=== PATIENT | male | born 1960 | race Caucasian/White ===

== ENCOUNTER 2017-07-05 00:49 | Emergency (ER) | payer OTHER ==
[2017-07-05 02:00] LABS: #Eosinphils 0.1 thou/uL (0.0-0.7); #Lymphocytes 2.4 thou/uL (1.20-3.40); #Monocytes 0.5 thou/uL (0.11-0.59); #Neutrophils 9.4 thou/uL (1.40-6.50); %Basophils 0.4 % (0.0-1.0); %Eosinophils 0.5 % (0.0-10.0); %Lymphocytes 19.5 % (21.0-51.0); %Monocytes 4.3 % (0.0-10.0); Hematocrit 40.5 % (42.0-52.0); Mean Platelet Volume 8.8 fL (7.4-10.4); Red Blood Cell (RBC) Count 4.34 mill/uL (4.70-6.10); White Blood Cell (WBC) Count 12.5 thou/uL (4.8-10.8)
[2017-07-05 02:22] LABS: Anion Gap 10 mmol/L (10-20); BUN (Urea Nitrogen) 29 mg/dL (8.4-25.7); Calc. Creatinine Clearance 0 mL/min (70-130); Carbon Dioxide 26 mmol/L (22-29); Chloride 106 mmol/L (98-107); Estimated GFR-MDRD 54
[2017-07-05 02:27] LABS: Troponin I Less than 0.010 ng/mL (< 0.028)
[2017-07-05 02:29] LABS: Bilirubin Negative (Negative); Blood, Urine Negative (Negative); Glucose, Urine (Dipstick) Negative (Negative); Ketone, Urine Negative (Negative); Nitrite Negative (Negative); Protein, Urine (Dipstick) Negative (Neg-Trace); Urobilinogen 0.2 mg/dL (0.2-1.0)
[2017-07-05 02:30] LABS: Amphetamine Not Detected (NotDetected); Methadone Not Detected (NotDetected); Methamphetamine Not Detected (NotDetected)
[2017-07-05] MEDS ORDERED: Famotidine/PF 20 mg/2ml Vial ONE (04:03)
[2017-07-05] MEDS ORDERED: diphenhydrAMINE 50 MG/ML VIAL ONE (04:03)
[2017-07-05] MEDS ORDERED: methylPREDNISolone Sod Succ/PF 125 MG/2 ML VIAL ONE (04:03)
--- NOTE | 2017-07-05 09:02 | CT ---
PRELIMINARY REPORT/[facility]/EMERGENCY AFTER HOURS PROCEDURE: EXAM: CT Head Without Intravenous Contrast CLINICAL HISTORY: 56 years old, male; Injury or trauma; Fall; Initial encounter; Blunt trauma (contusions or hematomas ); With loss of consciousness; Loss of consciousness for 30 minutes or less; Patient HX: Syncopal ep isode, fall TECHNIQUE: Axial computed tomography images of the head/brain without intravenous contrast. COMPARISON: No relevant prior studies available. FINDINGS: Brain: Unremarkable. No hemorrhage. No significant white matter disease. No edema. Ventricles: Unremarkable. No ventriculomegaly. Bones/joints: Unremarkable. No acute fracture. Soft tissues: Unremarkable. Sinuses: Unremarkable as visualized. No acute sinusitis. Mastoid air cells: Unremarkable as visualized. No mastoid effusion. IMPRESSION: No acute intracranial pathology. Thank you for allowing us to participate in the care of your patient. Dictated and Authenticated by: Evan Herbert MD 07/05/2017 2:20 AM Central Time ([place] \T\ [place]) FINAL REPORT CT BRAIN WITHOUT CONTRAST: Date: 07/05/17 FINDINGS/IMPRESSION: I agree with the preliminary report given by Dr. Evan Herbert of [facility]. POS: [facility]
== END 2017-07-05 05:48 | disposition home or self-care (01) ==
LOC: ERS 00:49
DX: R55 Syncope and collapse (principal); L25.9 Unspecified contact dermatitis, unspecified cause; I10 Essential (primary) hypertension; F41.9 Anxiety disorder, unspecified; Z87.891 Personal history of nicotine dependence; Z79.899 Other long term (current) drug therapy
CPT/HCPCS: 36415; 70450; 80048; 80306; 80307; 81003; 82553; 84484; 85025; 93005; 96361; 96374; 96375; J1200; J2930; S0028

== ENCOUNTER 2021-03-25 09:17 | Observation (INO) | payer OTHER ==
[2021-03-25 10:32] LABS: #Basophils 0.1 thou/uL (0.0-0.2); #Eosinphils 0.1 thou/uL (0.0-0.7); #Lymphocytes 1.9 thou/uL (1.20-3.40); #Monocytes 0.4 thou/uL (0.11-0.59); #Neutrophils 2.9 thou/uL (1.40-6.50); %Basophils 1.2 % (0.0-1.0); %Eosinophils 1.1 % (0.0-10.0); %Lymphocytes 36.3 % (21.0-51.0); %Monocytes 6.9 % (0.0-10.0); %Neutrophils 54.5 % (42.0-75.0); Hemoglobin 13.8 g/dL (14.0-18.0); Mean Corpuscular HGB CONC 33.3 g/dL (32.0-36.0); Mean Corpuscular Volume 92.9 fL (78.0-98.0); Mean Platelet Volume 9.1 fL (7.4-10.4); Platelet Count 213 thou/uL (130-400); RBC Distribution Width 11.8 % (11.5-14.5); Red Blood Cell (RBC) Count 4.44 mill/uL (4.70-6.10); White Blood Cell (WBC) Count 5.3 thou/uL (4.8-10.8)
[2021-03-25 10:55] LABS: ALT (SGPT) 10 U/L (8-55); AST (SGOT) 14 U/L (5-34); Albumin 4.3 g/dL (3.4-4.8); Alkaline Phosphatase 61 U/L (40-110); Anion Gap 10 mmol/L (10-20); BUN (Urea Nitrogen) 11 mg/dL (8.4-25.7); Bilirubin, Total 0.7 mg/dL (0.2-1.2); Calc. Creatinine Clearance 0 mL/min (70-130); Calcium 9.6 mg/dL (7.8-10.44); Carbon Dioxide 29 mmol/L (23-31); Chloride 105 mmol/L (98-107); Globulin 2.7 g/dL (2.4-3.5); Glucose 99 mg/dL (80-115); Lipase 30 U/L (8-78); Potassium 4.7 mmol/L (3.5-5.1); Sodium 139 mmol/L (136-145)
[2021-03-25] MEDS ORDERED: Aspirin Chewable 81 MG TAB ONE (10:58)
[2021-03-25] MEDS ORDERED: Nitroglycerin 2% Ointment 1 INCH/1 GM Packet ONE (10:58)
[2021-03-25] MEDS ORDERED: Enoxaparin Sodium 40 MG/0.4 ML SYRINGE SC SCH (12:15)
[2021-03-25] MEDS ORDERED: Lorazepam 0.5 MG TAB PO PRN (12:43)
[2021-03-25 12:54] LABS: Reticulocyte Count 0.8 % (0.5-1.5)
[2021-03-25 12:55] LABS: Iron 89 ug/dL (65-175); Iron Binding Capacity, Total 268 mcg/dL (261-462)
[2021-03-25 13:12] LABS: Ferritin 194.98 ng/mL (22-322)
[2021-03-25 13:26] LABS: HBCM Index 0.04 S/CO (0-0.79); HBSAg Index 0.22 S/CO (0-0.99); Hep A IgM AB Non-Reactive (NonReactive); Hep A IgM S/CO 0.07 S/CO (0-0.79); Hep B Surf Ag Non-Reactive S/CO (NonReactive); Hep C IgG Ab Non-Reactive (NonReactive); Hep C Index 0.05 S/CO (0-0.79); Hepatitis B Core IgM Abs Non-Reactive (NonReactive)
[2021-03-25 13:33] LABS: Troponin I Less than 0.010 ng/mL (< 0.028)
[2021-03-25 15:39] LABS: SARS-CoV-2 NAA Rapid Test Not Detected (NotDetected)
[2021-03-25 17:11] LABS: Troponin I Less than 0.010 ng/mL (< 0.028)
[2021-03-25] MEDS ORDERED: Rosuvastatin 10 MG TAB PO SCH (21:00)
[2021-03-25 21:32] VITALS: BMI 19.0
[2021-03-25] MEDS: Nitroglycerin 2% Ointment 1 INCH/1 GM Packet TOP SCH ×2 (21:36→22:17)
[2021-03-25] MEDS: Carvedilol 3.125 MG TAB PO SCH (21:46)
[2021-03-25] MEDS: Famotidine 20 MG TAB PO SCH (21:46)
[2021-03-25] MEDS: Sodium Chloride 0.9% 1,000 ML IV SCH ×2 (21:47)
[2021-03-26 05:29] LABS: #Basophils 0.1 thou/uL (0.0-0.2); #Eosinphils 0.1 thou/uL (0.0-0.7); #Lymphocytes 2.3 thou/uL (1.20-3.40); #Monocytes 0.5 thou/uL (0.11-0.59); %Eosinophils 1.5 % (0.0-10.0); %Lymphocytes 32.7 % (21.0-51.0); %Monocytes 6.8 % (0.0-10.0); Hemoglobin 11.9 g/dL (14.0-18.0); Mean Corpuscular HGB CONC 32.8 g/dL (32.0-36.0); Mean Corpuscular Hemoglobin 30.5 pg (27.0-31.0); Mean Corpuscular Volume 93.1 fL (78.0-98.0); Mean Platelet Volume 9.2 fL (7.4-10.4); Platelet Count 188 thou/uL (130-400); RBC Distribution Width 11.8 % (11.5-14.5); White Blood Cell (WBC) Count 6.9 thou/uL (4.8-10.8)
[2021-03-26] MEDS: Sodium Chloride 0.9% 1,000 ML IV SCH ×2 (05:57→15:42)
[2021-03-26] MEDS: Nitroglycerin 2% Ointment 1 INCH/1 GM Packet TOP SCH ×2 (05:57→14:56)
[2021-03-26 06:11] LABS: Anion Gap 9 mmol/L (10-20); BUN (Urea Nitrogen) 14 mg/dL (8.4-25.7); Calc. Creatinine Clearance 69 mL/min (70-130); Calcium 8.6 mg/dL (7.8-10.44); Carbon Dioxide 26 mmol/L (23-31); Chloride 110 mmol/L (98-107); Glucose 89 mg/dL (80-115); Potassium 4.9 mmol/L (3.5-5.1); Sodium 140 mmol/L (136-145)
[2021-03-26] MEDS ORDERED: [UNRECOGNIZED DRUG - OTHER] PO SCH (09:00)
[2021-03-26] MEDS ORDERED: Multivit, Therapeutic 1 TAB PO SCH (09:00)
[2021-03-26] MEDS ORDERED: GLUC SU PO SCH (09:00)
[2021-03-26] MEDS ORDERED: Thiamine 100 MG TAB PO SCH (09:00)
[2021-03-26] MEDS ORDERED: Folic Acid 1 MG TAB PO SCH (09:00)
[2021-03-26] MEDS ORDERED: Enoxaparin Sodium 40 MG/0.4 ML SYRINGE SC SCH (09:00)
[2021-03-26] MEDS ORDERED: CHONDRO SU A PO SCH (09:00)
[2021-03-26] MEDS ORDERED: Aspirin Chewable 81 MG TAB PO SCH (09:00)
[2021-03-26] MEDS ORDERED: VIT C PO SCH (09:00)
[2021-03-26] MEDS: Famotidine 20 MG TAB PO SCH (09:01)
[2021-03-26] MEDS: Carvedilol 3.125 MG TAB PO SCH ×2 (09:01→16:01)
[2021-03-26 16:51] VITALS: BP 141/75; TEMP 98.4
== END 2021-03-26 19:14 | disposition home or self-care (01) ==
LOC: ERS 09:17 → SUATTDRO 09:17 → ERHOLD 11:43 → 2SW 21:19
PROVIDERS: ADMIT Family Medicine; ATTEND Internal Medicine
DX: I20.8 Other forms of angina pectoris (principal); D64.9 Anemia, unspecified; E78.5 Hyperlipidemia, unspecified; I11.0 Hypertensive heart disease with heart failure; I50.30 Unspecified diastolic (congestive) heart failure; R33.9 Retention of urine, unspecified; I08.1 Rheumatic disorders of both mitral and tricuspid valves; Z86.010 Personal history of colon polyps; Z87.891 Personal history of nicotine dependence; Z20.5 Contact with and (suspected) exposure to viral hepatitis; Z79.82 Long term (current) use of aspirin; Z79.899 Other long term (current) drug therapy; Z20.822 Contact with and (suspected) exposure to COVID-19
CPT/HCPCS: 0240U; 36415; 71046; 78452; 80048; 80053; 80074; 82728; 83540; 83550; 83690; 84484; 85025; 85046; 93005; 93017; 93306; 96372; A9500; G0378; J1650

== ENCOUNTER 2021-04-20 06:05 | Emergency (ER) | payer OTHER ==
[2021-04-20] MEDS ORDERED: Ondansetron PF 4 MG/2 ML Vial ONE (06:58)
[2021-04-20] MEDS ORDERED: Ketorolac Tromethamine 30 MG/ML VIAL ONE (06:58)
== END 2021-04-20 08:36 | disposition home or self-care (01) ==
LOC: ERS 06:05
DX: E86.1 Hypovolemia (principal); E86.0 Dehydration; Z79.899 Other long term (current) drug therapy; Z79.82 Long term (current) use of aspirin; I10 Essential (primary) hypertension; Z87.891 Personal history of nicotine dependence
CPT/HCPCS: 96374; 96375; J1885; J2405

== ENCOUNTER 2021-04-25 06:35 | Emergency (ER) | payer OTHER ==
[2021-04-25] MEDS ORDERED: Ondansetron PF 4 MG/2 ML Vial ONE (07:10)
[2021-04-25] MEDS ORDERED: Ketorolac Tromethamine 30 MG/ML VIAL ONE (07:10)
[2021-04-25 07:21] LABS: #Monocytes 0.6 thou/uL (0.11-0.59); #Neutrophils 4.9 thou/uL (1.40-6.50); %Basophils 0.4 % (0.0-1.0); %Eosinophils 0.3 % (0.0-10.0); %Lymphocytes 15.8 % (21.0-51.0); %Monocytes 8.6 % (0.0-10.0); Hemoglobin 12.6 g/dL (14.0-18.0); Mean Corpuscular HGB CONC 34.1 g/dL (32.0-36.0); Mean Corpuscular Hemoglobin 31.3 pg (27.0-31.0); Mean Corpuscular Volume 91.9 fL (78.0-98.0); Mean Platelet Volume 8.7 fL (7.4-10.4); Platelet Count 197 thou/uL (130-400); RBC Distribution Width 11.9 % (11.5-14.5); Red Blood Cell (RBC) Count 4.03 mill/uL (4.70-6.10); White Blood Cell (WBC) Count 6.5 thou/uL (4.8-10.8)
[2021-04-25] MEDS ORDERED: Ondansetron ODT 4 MG TAB ONE (07:36)
[2021-04-25 07:41] LABS: ALT (SGPT) 39 U/L (8-55); AST (SGOT) 33 U/L (5-34); Albumin 3.4 g/dL (3.4-4.8); Alkaline Phosphatase 62 U/L (40-110); Anion Gap 12 mmol/L (10-20); BUN (Urea Nitrogen) 9 mg/dL (8.4-25.7); Bilirubin, Total 0.5 mg/dL (0.2-1.2); Calc. Creatinine Clearance 0 mL/min (70-130); Calcium 9.1 mg/dL (7.8-10.44); Carbon Dioxide 31 mmol/L (23-31); Chloride 98 mmol/L (98-107); Globulin 2.3 g/dL (2.4-3.5); Glucose 137 mg/dL (80-115); Potassium 4.7 mmol/L (3.5-5.1); Protein, Total 5.7 g/dL (5.8-8.1); Sodium 136 mmol/L (136-145)
[2021-04-25] MEDS ORDERED: Promethazine HCl 25 MG/ML VIAL ONE (10:47)
== END 2021-04-25 11:17 | disposition home or self-care (01) ==
LOC: ERS 06:35
DX: U07.1 COVID-19 (principal); J12.82 Pneumonia due to coronavirus disease 2019; E86.0 Dehydration; I10 Essential (primary) hypertension; Z87.891 Personal history of nicotine dependence
CPT/HCPCS: 36415; 71045; 80053; 85025; 96372; 96374; J1885; J2405; J2550; Q0162

== ENCOUNTER 2022-04-09 16:02 | Emergency (ER) | payer BC, OTHER ==
[2022-04-09 16:58] LABS: #Eosinphils 0.1 thou/uL (0.0-0.7); #Monocytes 0.4 thou/uL (0.11-0.59); #Neutrophils 2.9 thou/uL (1.40-6.50); %Basophils 0.5 % (0.0-1.0); %Eosinophils 1.9 % (0.0-10.0); %Monocytes 8.1 % (0.0-10.0); %Neutrophils 53.5 % (42.0-75.0); Hemoglobin 12.6 g/dL (14.0-18.0); Mean Corpuscular HGB CONC 32.6 g/dL (32.0-36.0); Mean Corpuscular Hemoglobin 30.1 pg (27.0-31.0); Mean Corpuscular Volume 92.4 fL (78.0-98.0); Mean Platelet Volume 9.3 fL (7.4-10.4); Platelet Count 205 thou/uL (130-400); Red Blood Cell (RBC) Count 4.19 mill/uL (4.70-6.10); White Blood Cell (WBC) Count 5.4 thou/uL (4.8-10.8)
[2022-04-09 17:10] LABS: Anion Gap 14 mmol/L (10-20); BUN (Urea Nitrogen) 17 mg/dL (8.4-25.7); Calc. Creatinine Clearance 0 mL/min (70-130); Calcium 9.5 mg/dL (7.8-10.44); Carbon Dioxide 28 mmol/L (23-31); Chloride 104 mmol/L (98-107); Estimated GFR 67; Glucose 112 mg/dL (80-115); Potassium 4.2 mmol/L (3.5-5.1); Sodium 142 mmol/L (136-145)
[2022-04-09] MEDS ORDERED: HYDROcodone/Acetaminophen 5/325 mg Tablet ONE (18:10)
[2022-04-09] MEDS ORDERED: Ketorolac Tromethamine 30 MG/ML VIAL ONE (18:10)
== END 2022-04-09 18:30 | disposition home or self-care (01) ==
LOC: ERS 16:02
DX: N40.1 Benign prostatic hyperplasia with lower urinary tract symptoms (principal); R33.8 Other retention of urine; I10 Essential (primary) hypertension; Z87.891 Personal history of nicotine dependence; Z79.899 Other long term (current) drug therapy
CPT/HCPCS: 36415; 80048; 85025; 96372; 99283; J1885

== ENCOUNTER 2022-05-03 03:54 | Observation (INO) | payer BC ==
[2022-05-03] MEDS ORDERED: Aspirin 325 MG TAB ONE (04:24)
[2022-05-03] MEDS ORDERED: Nitroglycerin 2% Ointment 1 INCH/1 GM Packet ONE (04:24)
[2022-05-03] MEDS ORDERED: Ondansetron PF 4 MG/2 ML Vial ONE (04:24)
[2022-05-03 04:39] LABS: #Eosinphils 0.1 thou/uL (0.0-0.7); #Lymphocytes 2.6 thou/uL (1.20-3.40); #Monocytes 0.5 thou/uL (0.11-0.59); #Neutrophils 2.9 thou/uL (1.40-6.50); %Basophils 0.7 % (0.0-1.0); %Eosinophils 1.8 % (0.0-10.0); %Lymphocytes 42.2 % (21.0-51.0); %Monocytes 7.6 % (0.0-10.0); %Neutrophils 47.7 % (42.0-75.0); Hemoglobin 13.8 g/dL (14.0-18.0); Mean Corpuscular Hemoglobin 31.1 pg (27.0-31.0); Mean Corpuscular Volume 91.4 fL (78.0-98.0); Mean Platelet Volume 9.2 fL (7.4-10.4); Platelet Count 201 thou/uL (130-400); Red Blood Cell (RBC) Count 4.45 mill/uL (4.70-6.10); White Blood Cell (WBC) Count 6.1 thou/uL (4.8-10.8)
[2022-05-03 04:58] LABS: ALT (SGPT) 10 U/L (8-55); AST (SGOT) 13 U/L (5-34); Albumin 4.3 g/dL (3.4-4.8); Alkaline Phosphatase 55 U/L (40-110); Anion Gap 13 mmol/L (10-20); BUN (Urea Nitrogen) 18 mg/dL (8.4-25.7); Bilirubin, Total 0.9 mg/dL (0.2-1.2); CK (CPK) 57 U/L (30-200); Calc. Creatinine Clearance 0 mL/min (70-130); Calcium 9.6 mg/dL (7.8-10.44); Carbon Dioxide 28 mmol/L (23-31); Chloride 104 mmol/L (98-107); Estimated GFR 66; Globulin 2.6 g/dL (2.4-3.5); Glucose 99 mg/dL (80-115); Lipase 32 U/L (8-78); Potassium 4.3 mmol/L (3.5-5.1); Protein, Total 6.9 g/dL (5.8-8.1); Sodium 141 mmol/L (136-145)
[2022-05-03] MEDS ORDERED: Enoxaparin Sodium 60 MG/0.6 ML SYRINGE ONE (06:09)
[2022-05-03 07:03] LABS: SARS-CoV-2 NAA Rapid Test Not Detected (NotDetected)
[2022-05-03 07:47] LABS: Troponin I Less than 0.010 ng/mL (< 0.028)
[2022-05-03] MEDS ORDERED: Ondansetron ODT 4 MG TAB PO PRN (08:14)
[2022-05-03] MEDS ORDERED: Ondansetron PF 4 MG/2 ML Vial IVP PRN (08:14)
[2022-05-03] MEDS ORDERED: Aspirin Chewable 81 MG TAB PO SCH (09:00)
[2022-05-03] MEDS ORDERED: DILTIAZEM HCL 180 MG PO SCH (09:00)
[2022-05-03] MEDS: Nitroglycerin 2% Ointment 1 INCH/1 GM Packet TOP SCH ×2 (09:47→20:29)
[2022-05-03] MEDS: Aspirin Chewable 81 MG TAB PO SCH (09:47)
[2022-05-03 11:11] LABS: Troponin I Less than 0.010 ng/mL (< 0.028)
[2022-05-03 14:58] VITALS: BMI 18.8
[2022-05-03] MEDS: Carvedilol 3.125 MG TAB PO SCH (16:20)
[2022-05-03] MEDS: Senokot S 8.6-50 MG TAB PO PRN (20:32)
[2022-05-03] MEDS ORDERED: Rosuvastatin 10 MG TAB PO SCH (21:00)
[2022-05-04 04:46] VITALS: TEMP 98
[2022-05-04 05:08] LABS: #Eosinphils 0.1 thou/uL (0.0-0.7); #Monocytes 0.5 thou/uL (0.11-0.59); #Neutrophils 3.6 thou/uL (1.40-6.50); %Basophils 0.6 % (0.0-1.0); %Eosinophils 2.3 % (0.0-10.0); %Lymphocytes 31.6 % (21.0-51.0); %Monocytes 7.6 % (0.0-10.0); %Neutrophils 57.9 % (42.0-75.0); Hemoglobin 12.9 g/dL (14.0-18.0); Mean Corpuscular HGB CONC 33.8 g/dL (32.0-36.0); Mean Corpuscular Hemoglobin 31.2 pg (27.0-31.0); Mean Corpuscular Volume 92.2 fL (78.0-98.0); Mean Platelet Volume 9.1 fL (7.4-10.4); Platelet Count 189 thou/uL (130-400); Red Blood Cell (RBC) Count 4.12 mill/uL (4.70-6.10); White Blood Cell (WBC) Count 6.2 thou/uL (4.8-10.8)
[2022-05-04 05:38] LABS: Anion Gap 14 mmol/L (10-20); BUN (Urea Nitrogen) 17 mg/dL (8.4-25.7); Calc. Creatinine Clearance 62 mL/min (70-130); Calcium 9.3 mg/dL (7.8-10.44); Carbon Dioxide 24 mmol/L (23-31); Cardiac Risk 4.5 (Less than 4.5); Chloride 107 mmol/L (98-107); Cholesterol 177 mg/dl (< 200 Desired); Estimated GFR 78; Glucose 97 mg/dL (80-115); HDL Cholesterol 39 mg/dL (>60 Neg Risk); LDL Cholesterol, Calculated 114 mg/dL; Potassium 4.5 mmol/L (3.5-5.1); Sodium 140 mmol/L (136-145); Triglycerides 119 mg/dL (Less than 150)
[2022-05-04] MEDS ORDERED: ADENOSINE 60 MG/20 ML VIAL ONE (08:57)
[2022-05-04] MEDS: Carvedilol 3.125 MG TAB PO SCH (14:11)
[2022-05-04] MEDS: Aspirin Chewable 81 MG TAB PO SCH (15:26)
[2022-05-04] MEDS: Senokot S 8.6-50 MG TAB PO PRN (15:27)
[2022-05-04] MEDS: Nitroglycerin 2% Ointment 1 INCH/1 GM Packet TOP SCH (15:28)
[2022-05-04 16:02] VITALS: BP 140/65
== END 2022-05-04 17:15 | disposition home or self-care (01) ==
LOC: ERS 03:54 → ERHOLD 05:28 → 2SW 15:11
PROVIDERS: ADMIT Family Medicine; ATTEND Family Medicine
DX: R07.89 Other chest pain (principal); R00.2 Palpitations; I10 Essential (primary) hypertension; E78.5 Hyperlipidemia, unspecified; K21.9 Gastro-esophageal reflux disease without esophagitis; Z87.891 Personal history of nicotine dependence; Z79.899 Other long term (current) drug therapy; Z20.822 Contact with and (suspected) exposure to COVID-19
CPT/HCPCS: 36415; 71045; 78452; 80048; 80053; 80061; 83690; 84484; 85025; 93005; 93017; 93306; 96372; 96374; A9500; J0153; J1650; J2405; U0002

== ENCOUNTER 2024-02-04 04:47 | Inpatient (IN) | payer BC ==
[2024-02-04 05:44] LABS: #Basophils 0.03 10x3/uL (0.0-0.2); %Basophils 0.5 % (0.0-1.0); %Lymphocytes 43.6 % (21.0-51.0); %Monocytes 7.5 % (0.0-10.0); %Neutrophils 46.2 % (42.0-75.0); Hematocrit 40.1 % (42.0-52.0); Hemoglobin 13.6 g/dL (14.0-18.0); Mean Corpuscular HGB CONC 33.9 g/dL (32.0-36.0); Mean Corpuscular Hemoglobin 29.8 pg (27.0-31.0); Mean Corpuscular Volume 87.9 fL (78.0-98.0); Mean Platelet Volume 11.2 fL (7.4-10.4); Platelet Count 208 10x3/uL (130-400); RBC Distribution Width 12.6 % (11.5-14.5); Red Blood Cell (RBC) Count 4.56 mill/uL (4.70-6.10)
[2024-02-04 06:11] LABS: ALT (SGPT) 7 U/L (8-55); AST (SGOT) 11 U/L (5-34); Albumin 3.8 g/dL (3.4-4.8); Alkaline Phosphatase 51 U/L (40-110); Anion Gap 13 mmol/L (10-20); BUN (Urea Nitrogen) 18 mg/dL (8.4-25.7); Bilirubin, Total 0.7 mg/dL (0.2-1.2); Calc. Creatinine Clearance 0 mL/min (70-130); Calcium 9.9 mg/dL (7.8-10.44); Carbon Dioxide 27 mmol/L (23-31); Chloride 106 mmol/L (98-107); Estimated GFR 73; Globulin 2.8 g/dL (2.4-3.5); Glucose 104 mg/dL (80-115); Potassium 4.4 mmol/L (3.5-5.1); Protein, Total 6.6 g/dL (5.8-8.1); Sodium 142 mmol/L (136-145)
[2024-02-04 06:14] LABS: Troponin I Less than 0.010 ng/mL (< 0.028)
[2024-02-04] MEDS ORDERED: Aspirin Chewable 81 MG TAB ONE (06:29)
[2024-02-04 09:47] VITALS: BMI 18.8
[2024-02-04] MEDS ORDERED: Senokot S 8.6-50 MG TAB PO PRN (10:34)
[2024-02-04] MEDS ORDERED: Acetaminophen 325 MG TAB PO PRN (10:34)
[2024-02-04] MEDS ORDERED: Acetaminophen 650 MG Suppository PR PRN (10:34)
[2024-02-04] MEDS ORDERED: Calcium Carbonate 500 MG ChewTAB PO PRN (10:34)
[2024-02-04] MEDS ORDERED: Ondansetron PF 4 MG/2 ML Vial IVP PRN (10:34)
[2024-02-04] MEDS ORDERED: Nitroglycerin 0.4 MG TAB (25 Tab Bottle) SL PRN (10:34)
[2024-02-04] MEDS ORDERED: Ondansetron ODT 4 MG TAB PO PRN (10:34)
[2024-02-04] MEDS ORDERED: Famotidine/PF 20 mg/2ml Vial ONE (12:00)
[2024-02-04] MEDS: Famotidine/PF 20 mg/2ml Vial SLOW IVP SCH (12:03)
[2024-02-04] MEDS ORDERED: Thiamine HCl 200 MG/2 ML VIAL SLOW IVP SCH (12:15)
[2024-02-04] MEDS ORDERED: Lorazepam 1 MG TAB PO SCH (12:15)
[2024-02-04 12:55] LABS: Troponin I Less than 0.010 ng/mL (< 0.028)
[2024-02-04] MEDS ORDERED: Carvedilol 6.25 MG TAB ONE (17:31)
[2024-02-04] MEDS: Carvedilol 3.125 MG TAB PO SCH (17:33)
[2024-02-04 19:51] LABS: Troponin I Less than 0.010 ng/mL (< 0.028)
[2024-02-05 05:50] LABS: Anion Gap 11 mmol/L (10-20); BUN (Urea Nitrogen) 23 mg/dL (8.4-25.7); Calc. Creatinine Clearance 50 mL/min (70-130); Calcium 9.5 mg/dL (7.8-10.44); Carbon Dioxide 29 mmol/L (23-31); Chloride 108 mmol/L (98-107); Estimated GFR 63; Glucose 83 mg/dL (80-115); Potassium 4.6 mmol/L (3.5-5.1); Sodium 143 mmol/L (136-145)
[2024-02-05 05:58] LABS: #Basophils 0.03 10x3/uL (0.0-0.2); %Basophils 0.4 % (0.0-1.0); %Eosinophils 1.6 % (0.0-10.0); %Lymphocytes 39.7 % (21.0-51.0); %Monocytes 7.2 % (0.0-10.0); Hematocrit 39.6 % (42.0-52.0); Hemoglobin 13.3 g/dL (14.0-18.0); Mean Corpuscular HGB CONC 33.6 g/dL (32.0-36.0); Mean Corpuscular Hemoglobin 30.8 pg (27.0-31.0); Mean Corpuscular Volume 91.7 fL (78.0-98.0); Mean Platelet Volume 11.4 fL (7.4-10.4); Platelet Count 207 10x3/uL (130-400); RBC Distribution Width 12.5 % (11.5-14.5); Red Blood Cell (RBC) Count 4.32 mill/uL (4.70-6.10)
[2024-02-05] MEDS: Enoxaparin 40 MG (0.4 mL) SYRINGE SC SCH (08:33)
[2024-02-05] MEDS: Ferrous Gluconate 324 MG TAB PO SCH (08:33)
[2024-02-05] MEDS: Famotidine/PF 20 mg/2ml Vial SLOW IVP SCH (08:33)
[2024-02-05] MEDS: Aspirin Chewable 81 MG TAB PO SCH (08:33)
[2024-02-05] MEDS: dilTIAZem ER 60 MG CAP PO SCH (08:34)
[2024-02-05] MEDS: Cyanocobalamin (Vitamin B-12) 1,000 MCG TAB PO SCH (08:34)
[2024-02-05] MEDS ORDERED: Folic Acid 1 MG TAB PO SCH (09:00)
[2024-02-05] MEDS ORDERED: Multivit, Therapeutic 1 TAB PO SCH (09:00)
[2024-02-05] MEDS: Atorvastatin Calcium 40 MG TAB PO SCH (20:56)
[2024-02-06] MEDS: Pantoprazole DR 40 MG TAB PO SCH (09:26)
[2024-02-06] MEDS ORDERED: Communication Order-Pharmacy FS SCH (19:00)
[2024-02-07] MEDS: Sodium Chloride 0.9% 500 ML IV SCH (00:02)
[2024-02-07] MEDS ORDERED: Verapamil 5 MG/2 ML VIAL ONE (07:30)
[2024-02-07] MEDS ORDERED: Adenosine 6 mg (2 mL) VIAL ONE (07:30)
[2024-02-07] MEDS ORDERED: Heparin 10,000 UNITS/ 10 ML VIAL ONE (07:30)
[2024-02-07] MEDS ORDERED: Nitroglycerin 50 MG/250 ML BOT 250 ML ONE (07:31)
[2024-02-07] MEDS ORDERED: fentaNYL 50 mcg/mL 1 mL Vial ONE (08:06)
[2024-02-07] MEDS ORDERED: Midazolam HCl 2 mg/2 ml Vial ONE (08:06)
[2024-02-07] MEDS ORDERED: Sodium Chloride 0.9% 200 ML IV PRN (08:53)
[2024-02-07] MEDS ORDERED: Nitroglycerin 0.4 MG TAB (25 Tab Bottle) SL PRN (08:53)
[2024-02-07] MEDS ORDERED: Acetaminophen/Codeine 30-300mg Tablet PO PRN ×2 (08:53)
[2024-02-07] MEDS: Sodium Chloride 0.9% 1,000 ML IV SCH (09:15)
[2024-02-07 09:21] VITALS: TEMP 98.3
[2024-02-07 11:25] VITALS: BP 129/67
[2024-02-07] MEDS ORDERED: Thiamine 100 MG TAB PO SCH (12:15)
== END 2024-02-07 14:31 | disposition home or self-care (01) | DRG 287 ==
LOC: ERS 04:47 → ERHOLD 08:28 → 2NO 18:19 → OBSVTOIN 02-07 12:45
PROVIDERS: ADMIT Internal Medicine; ATTEND Internal Medicine
PROC: 4A023N7 Measurement of Cardiac Sampling and Pressure, Left Heart, Percutaneous Approach (ICD-10-PCS; principal; 2024-02-07)
PROC: B2111ZZ Fluoroscopy of Multiple Coronary Arteries using Low Osmolar Contrast (ICD-10-PCS; 2024-02-07)
PROC: B2151ZZ Fluoroscopy of Left Heart using Low Osmolar Contrast (ICD-10-PCS; 2024-02-07)
DX: R07.89 Other chest pain (principal); I10 Essential (primary) hypertension; N40.0 Benign prostatic hyperplasia without lower urinary tract symptoms; K21.9 Gastro-esophageal reflux disease without esophagitis; D64.9 Anemia, unspecified; F41.9 Anxiety disorder, unspecified; E78.00 Pure hypercholesterolemia, unspecified; Z79.899 Other long term (current) drug therapy; Z98.890 Other specified postprocedural states; Z87.891 Personal history of nicotine dependence
CPT/HCPCS: 36415; 71045; 80048; 80053; 83690; 83880; 84484; 85025; 93005; 93306; 96372; 96374; 96376; 99152; 99153; C1769; C1894; G0378; J0153; J1644; J1650; J2250; J3010; J7030; J7050; S0028

== ENCOUNTER 2025-06-05 15:56 | Outpatient (CLI) | payer BC ==
[2025-06-05 16:53] LABS: #Basophils 0.04 10x3/uL (0.0-0.2); #Eosinophils 0.17 10x3/uL (0.0-0.7); #Monocytes 0.50 10x3/uL (0.11-0.59); #Neutrophils 3.37 10x3/uL (1.40-6.50); %Basophils 0.6 % (0.0-1.0); %Eosinophils 2.6 % (0.0-10.0); %Lymphocytes 38.3 % (21.0-51.0); %Monocytes 7.5 % (0.0-10.0); %Neutrophils 50.7 % (42.0-75.0); Hematocrit 37.7 % (42.0-52.0); Hemoglobin 12.3 g/dL (14.0-18.0); Mean Corpuscular Hemoglobin 29.8 pg (27.0-31.0); Mean Corpuscular Volume 91.3 fL (78.0-98.0); Platelet Count 222 10x3/uL (130-400); Red Blood Cell (RBC) Count 4.13 mill/uL (4.70-6.10); White Blood Cell (WBC) Count 6.65 10x3/uL (4.8-10.8)
[2025-06-05 17:06] LABS: INR-International Normal Ratio 1.1; PTT 29.8 sec (22.9-36.1); Prothrombin Time 14.3 sec (12.0-14.7)
[2025-06-05 17:08] LABS: Anion Gap 19 mmol/L (10-20); BUN (Urea Nitrogen) 24 mg/dL (8.4-25.7); Calc. Creatinine Clearance 0 mL/min (70-130); Calcium 9.4 mg/dL (7.8-10.44); Carbon Dioxide 27 mmol/L (23-31); Chloride 104 mmol/L (98-107); Glucose 97 mg/dL (80-115); Potassium 4.3 mmol/L (3.5-5.1); Sodium 146 mmol/L (136-145)
== END 2025-06-05 15:57 | disposition home or self-care (01) ==
LOC: LABBT 15:56
PROVIDERS: ATTEND Urology
DX: Z01.818 Encounter for other preprocedural examination (principal); R39.12 Poor urinary stream; R39.14 Feeling of incomplete bladder emptying
CPT/HCPCS: 80048; 85025; 85610; 85730; 87086; 93005; 93010

== ENCOUNTER 2025-06-22 07:19 | Outpatient (CLI) | payer MEDICARE, BC ==
[2025-06-22] MEDS ORDERED: Iopamidol 370 76% 100 ML VIAL ONE (14:34)
== END 2025-06-22 07:20 | disposition home or self-care (01) ==
LOC: CT 07:19
PROVIDERS: ATTEND Urology
DX: C67.8 Malignant neoplasm of overlapping sites of bladder (principal); I70.0 Atherosclerosis of aorta
CPT/HCPCS: 74178; Q9967